=== PATIENT | female | born 1980 | race American Indian/Alaskan Native ===

== ENCOUNTER 2017-02-21 08:41 | Emergency (ER) | payer SELFPAY ==
[2017-02-21 09:43] VITALS: BP 164/96
[2017-02-21 10:13] LABS: Basophils % (Auto) 0.7 % (0.0-1.8); Eosinophils % (Auto) 1.6 % (0.0-4.3); Hematocrit 41.7 % (30.3-42.9); Hemoglobin 13.5 gm/dl (10.1-14.3); Mean Corpuscular HGB Conc 32 % (30-34); Mean Corpuscular Hemoglobin 31 pg (28-32); Mean Corpuscular Volume 96 fl (79-97); Platelet Count 231 K/mm3 (140-440); Red Blood Count 4.33 M/mm3 (3.65-5.03); Red Cell Distribution Width 13.3 % (13.2-15.2); White Blood Count 7.4 K/mm3 (4.5-11.0)
[2017-02-21 10:34] LABS: Alanine Aminotransferase 11 units/L (7-56); Albumin 4.1 g/dL (3.9-5); Albumin/Globulin Ratio 1.3 %; Alkaline Phosphatase 49 units/L (35-129); Anion Gap 18 mmol/L; BUN/Creatinine Ratio 16; Blood Urea Nitrogen 8 mg/dL (7-17); Carbon Dioxide 25 mmol/L (22-30); Chloride 102.5 mmol/L (98-107); Glucose 86 mg/dL (65-100); Lipase 20 units/L (13-60); Potassium 4.3 mmol/L (3.6-5.0); Sodium 141 mmol/L (137-145); Total Protein 7.2 g/dL (6.3-8.2)
[2017-02-21 11:45] LABS: Bilirubin,Urine NEG (Negative); Blood,Urine NEG (Negative); Ketones,Urine NEG (Negative); Leukocyte Esterase,Urine NEG (Negative); Mucus,Urine 3+ /HPF; Nitrite,Urine NEG (Negative); Protein,Urine <15 mg/dL mg/dL (Negative); RBC,Urine < 1.0 /HPF (0.0-6.0); Urobilinogen,Urine < 2.0 mg/dL (<2.0)
== END 2017-02-21 20:16 | disposition left against medical advice (07) ==
LOC: ED 08:41
DX: M79.605 Pain in left leg (principal); M54.9 Dorsalgia, unspecified; Z53.21 Procedure and treatment not carried out due to patient leaving prior to being seen by health care provider
CPT/HCPCS: 36415; 80053; 81001; 83690; 85025

== ENCOUNTER 2020-10-12 20:04 | Emergency (ER) | payer BC ==
--- NOTE | 2020-10-12 21:40 | Event Note ---
ED Screening Note Date of service: 10/12/20 Time: 21:40 ED Screening Note: Patient 40-year-old female who presents for left knee pain and swelling states unable to ambulate for 2 days. Patient denies fall injury or trauma. Does have history of arthralgia. This initial assessment/diagnostic orders/clinical plan/treatment(s) is/are subject to change based on patients health status, clinical progression and re- assessment by fellow clinical providers in the ED. Further treatment and workup at subsequent clinical providers discretion. Patient/guardian urged not to elope from the ED as their condition may be serious if not clinically assessed and managed. Initial orders include: xray left knee
[2020-10-12 21:41] VITALS: BP 114/59
[2020-10-12] MEDS ORDERED: HYDROcodone/ACETAMINOPHEN 5-325 MG TAB PO ONE (21:47)
--- NOTE | 2020-10-12 22:32 | XRay Report ---
LEFT KNEE 3 VIEW(S) INDICATION / CLINICAL INFORMATION: twisted knee this morning...pain swelling unable to bear weight COMPARISON: None available. FINDINGS: BONES / JOINT(S): No acute fracture or subluxation. Severe tricompartmental osteoarthritis. 1.1 cm in tra-articular body noted within Hoffa's fat pad. SOFT TISSUES: No significant abnormality. ADDITIONAL FINDINGS: None. Signer Name: Darren Reyez MD Signed: 10/12/2020 10:27 PM Workstation Name: [id number]
--- NOTE | 2020-10-13 00:57 | Emergency Department Report ---
ED Lower Extremity HPI - General Chief Complaint: Extremity Injury, Lower Stated Complaint: KNEE PAIN/WORK INJURY Time Seen by Provider: 10/13/20 00:53 Source: patient Mode of arrival: Ambulatory Limitations: No Limitations - History of Present Illness Initial Comments: Patient 40-year-old female who presents for left knee pain and swelling states unable to ambulate for 2 days. Patient denies fall injury or trauma. Does have history of arthralgia. Current pain 3/10 7 on over 10 upon arrival. Pain is exacerbated by flexion extension and weight bearing. There is been no fevers, chills, patient denies new fall injury or trauma. MD Complaint: knee injury - Related Data Previous Rx's Medication Instructions Recorded Last Taken Type Acetaminophen/Codeine [Tylenol 1 tab PO Q6H PRN #12 tab 10/13/20 Unknown Rx /Codeine # 3 tab] Naproxen 500 mg PO BID #30 tablet 10/13/20 Unknown Rx predniSONE [Deltasone] 40 mg PO QDAY 5 Days #10 tab 10/13/20 Unknown Rx Allergies Allergy/AdvReac Type Severity Reaction Status Date / Time No Known Allergies Allergy Unverified 10/12/20 21:45 ED Review of Systems ROS: Stated complaint: KNEE PAIN/WORK INJURY Other details as noted in HPI Constitutional: denies: chills, fever Eyes: denies: eye pain, eye discharge, vision change ENT: denies: ear pain, throat pain Respiratory: denies: cough, shortness of breath, wheezing Cardiovascular: denies: chest pain, palpitations Endocrine: no symptoms reported Gastrointestinal: as per HPI Genitourinary: denies: urgency, dysuria, discharge Musculoskeletal: joint swelling (left knee ), arthralgia Skin: denies: rash, lesions Neurological: as per HPI Psychiatric: denies: anxiety, depression Hematological/Lymphatic: denies: easy bleeding, easy bruising ED Past Medical Hx - Past Medical History Additional medical history: Sciatica, Back pain, Vaginal delivery x 2 - Social History Smoking Status: Never Smoker Substance Use Type: Alcohol, Non Opiate Pain - Medications Home Medications: Home Medications Medication Instructions Recorded Confirmed Last Taken Type Acetaminophen/Codeine [Tylenol 1 tab PO Q6H PRN #12 tab 10/13/20 Unknown Rx /Codeine # 3 tab] Naproxen 500 mg PO BID #30 tablet 10/13/20 Unknown Rx predniSONE [Deltasone] 40 mg PO QDAY 5 Days #10 tab 10/13/20 Unknown Rx ED Physical Exam - General Limitations: No Limitations General appearance: alert, in no apparent distress - Head Head exam: Present: atraumatic, normocephalic - Eye Eye exam: Present: normal appearance, PERRL, EOMI Pupils: Present: normal accommodation - ENT ENT exam: Present: normal exam - Neck Neck exam: Present: normal inspection, full ROM. Absent: tenderness - Respiratory Respiratory exam: Present: normal lung sounds bilaterally. Absent: respiratory distress, wheezes - Cardiovascular Cardiovascular Exam: Present: regular rate, normal rhythm, normal heart sounds. Absent: systolic murmur, diastolic murmur, rubs, gallop - GI/Abdominal GI/Abdominal exam: Present: soft, normal bowel sounds - Rectal Rectal exam: Present: deferred - Extremities Exam Extremities exam: Present: tenderness, normal capillary refill, joint swelling. Absent: pedal edema, calf tenderness - Expanded Lower Extremity Exam Left Knee exam: Present: tenderness, swelling, pain w/ pronation/supination, posterior draw sign, pain/laxity with valgus, pain/laxity with varus, full knee extension. Absent: abrasion, laceration, ecchymosis, deformity, crepidus, dislocation, erythema, effusion Lower Leg exam: Present: full ROM. Absent: tenderness Ankle exam: Present: full ROM. Absent: tenderness Foot/Toe exam: Present: full ROM. Absent: tenderness Neuro vascular tendon exam: Absent: pulse deficit, motor deficit, sensory deficit, tendon deficit Gait: Positive: observed and limited by pain - Back Exam Back exam: Present: normal inspection, full ROM. Absent: tenderness - Neurological Exam Neurological exam: Present: alert, oriented X3, CN II-XII intact, abnormal gait (partial weight bearing left knee ), reflexes normal. Absent: motor sensory deficit - Expanded Neurological Exam Expanded Patient oriented to: Present: person, place, time Speech: Present: fluid speech Motor strength exam: RLE: 5, LLE: 5 DTR: knee (R): 2+, knee (L): 2+ Best Eye Response ([place]): (4) open spontaneously Best Motor Response ([place]): (6) obeys commands Best Verbal Response ([place]ath): (5) oriented Heath Total: 15 - Psychiatric Psychiatric exam: Present: normal affect, normal mood - Skin Skin exam: Present: warm, dry, intact, normal color. Absent: rash ED Course Vital Signs 10/12/20 21:36 Temperature 99.4 F Pulse Rate 67 Respiratory 18 Rate Blood Pressure 114/59 O2 Sat by Pulse 100 Oximetry ED Lower Extremity MDM - Radiology Data Radiology results: report reviewed, image reviewed cc: NERY DOMINIQUE NP Fluoro Time In Minutes: LEFT KNEE 3 VIEW(S) INDICATION / CLINICAL INFORMATION: twisted knee this morning...pain swelling unable to bear weight COMPARISON: None available. FINDINGS: BONES / JOINT(S): No acute fracture or subluxation. Severe tricompartmental osteoarthritis. 1.1 cm intra-articular body noted within H offa's fat pad. SOFT TISSUES: No significant abnormality. ADDITIONAL FINDINGS: None. Signer Name: Darren Burgos MD Signed: 10/12/2020 10:27 PM Workstation Name: [id number] Transcribed By: SB Dictated By: DARREN BURGOS MD Electronically Authenticated By: DARREN BURGOS MD Signed Date/Time: 10/12/202226 DD/ 26 TD/TT: - Medical Decision Making Knee x-ray demonstrates tricompartmental severe arthralgia, tired no confirmed effusion. Plan NSAIDs, steroids, crutches follow-up with orthopedic surgeon 2 to 3 days. Critical care attestation.: If time is entered above; I have spent that time in minutes in the direct care of this critically ill patient, excluding procedure time. ED Disposition Clinical Impression: Knee sprain Qualifiers: Encounter type: initial encounter Involved ligament of knee: unspecified ligament Laterality: left Qualified Code(s): S83.92XA - Sprain of unspecified site of left knee, initial encounter Internal derangement of knee Qualifiers: Laterality: left Qualified Code(s): M23.92 - Unspecified internal derangement of left knee Disposition: - TO HOME OR SELFCARE Is pt being admited?: No Does the pt Need Aspirin: No Condition: Stable Instructions: Elastic Bandage and RICE Therapy, Knee Sprain, Adult, [id number], How to Use a Knee Brace, Crutch Use, Adult, [id number] Additional Instructions: Take medfications as prescribed, use knee immobilizer and crutchess as directed , return to emergency if symptoms worsen. Prescriptions: predniSONE [Deltasone] 40 mg PO QDAY 5 Days #10 tab Naproxen 500 mg PO BID #30 tablet Acetaminophen/Codeine [Tylenol /Codeine # 3 tab] 1 tab PO Q6H PRN #12 tab PRN Reason: Pain [facility] - 3-5 Days Forms: Work/School Release Form(ED) Time of Disposition: 01:21
== END 2020-10-13 02:10 | disposition home or self-care (01) ==
LOC: ED 20:04
DX: S83.92XA Sprain of unspecified site of left knee, initial encounter (principal); M23.92 Unspecified internal derangement of left knee; X58.XXXA Exposure to other specified factors, initial encounter; Y93.89 Activity, other specified; Y92.89 Other specified places as the place of occurrence of the external cause; Y99.8 Other external cause status
CPT/HCPCS: 99283